=== PATIENT | male | born 1985 | race Caucasian/White ===

== ENCOUNTER 2019-10-08 10:29 | Emergency (ER) | payer OTHER ==
[~2019-10-08] VITALS: Ht 177.8 cm; Wt 92.1 kg
[2019-10-08] MEDS ORDERED: MULTIVITAMINS1 EAC7 PO (10:45)
[2019-10-08] MEDS ORDERED: TYLENOL325 MG PO (10:45)
[2019-10-08] MEDS ORDERED: COSENTYX S150 MG/1 M (10:46)
== END 2019-10-08 12:45 | disposition home or self-care (01) ==
LOC: ED 10:29
DX: R04.0 Epistaxis (principal); Z88.8 Allergy status to other drugs, medicaments and biological substances; Z79.899 Other long term (current) drug therapy
CPT/HCPCS: 99283

== ENCOUNTER 2019-10-17 03:32 | Emergency (ER) | payer OTHER ==
[~2019-10-17] VITALS: Ht 177.8 cm; Wt 92.1 kg
[~2019-10-17 03:32] MED LIST: COSENTYX S150 MG/1 M; MULTIVITAMINS1 EAC7 PO; TYLENOL325 MG PO
--- OUTSIDE RECORDS SUMMARY | 2019-10-17 03:36 | XMS ---
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 Rudolph VISIT COUNT (12 MO.) 2 [facility] TOTAL 2 NOTE: Visits indicate total known visits. ED/UCC VISIT TRACKING (12 MO.) 10/17/2019 03:33 [facility] [place] TYPE: Emergency COMPLAINT: - COUGHING BLOOD/POST OP PROBLEM 10/08/2019 10:29 BELIN[facility] Garcia [place] TYPE: Emergency COMPLAINT: - NOSE BLEED DIAGNOSES: - Fever, unspecified - Allergy status to oth drug/meds/biol subst status - Other mcc (current) drug therapy - Epistaxis INPATIENT VISIT TRACKING (12 MO.) No inpatient visits to display in this time frame [email or web address]
== END 2019-10-17 06:04 | disposition short-term general hospital (02) ==
LOC: ED 03:32
DX: J95.831 Postprocedural hemorrhage of a respiratory system organ or structure following other procedure (principal); Z88.8 Allergy status to other drugs, medicaments and biological substances; Z79.899 Other long term (current) drug therapy
CPT/HCPCS: 30903; 80053; 85025; 85610; 85730; 99285-25; J2060; J2405; J7030

== ENCOUNTER 2023-11-17 20:23 | Emergency (ER) | payer OTHER ==
[~2023-11-17] VITALS: Ht 177.8 cm; Wt 94.3 kg
[2023-11-17] MEDS ORDERED: LEXAPRO20 MG PO (20:41)
[2023-11-17] MEDS ORDERED: SKYRIZI150 MG/1 M (20:41)
[2023-11-17] MEDS ORDERED: HYDROCODON-ACE1 EA10 PO (21:44)
[2023-11-17 22:00] VITALS: BP 128/84
== END 2023-11-17 22:05 | disposition home or self-care (01) ==
LOC: ED 20:23
DX: S82.841A Displaced bimalleolar fracture of right lower leg, initial encounter for closed fracture (principal); X50.1XXA Overexertion from prolonged static or awkward postures, initial encounter; Z91.09 Other allergy status, other than to drugs and biological substances; Z79.899 Other long term (current) drug therapy
CPT/HCPCS: 73610; 99283-25; A9270